=== PATIENT | male | born 1985 | race Caucasian/White ===

== ENCOUNTER 2017-05-26 12:01 | Inpatient (IN) | payer MEDICARE, OTHER ==
[~2017-05-26] VITALS: Ht 165.1 cm; Wt 47.5 kg
[2017-05-26] VITALS (16 sets, daily range): BP systolic 109–149; BP diastolic 69–87; PULSE 116–167; RESP 14–78; TEMP 98.9–99.5; O2SAT 92–100
[~2017-05-26 12:01] MED LIST: CARB0.5D16 EACH EYE; Docusate Sod/Senna PO; LEVE500S TUBE; PROZ20CA11 PO; RISP1 PO
[2017-05-26] MEDS ORDERED: MIDAZOLAM 100 MG/100 ML INJ 100 ML ONE (12:04)
[2017-05-26] MEDS ORDERED: LORazepam 2 MG/ML VIAL ONE (12:07)
[2017-05-26] MEDS ORDERED: PROPOFOL 1000 MG/100 ML INJ 100 ML IV PRN (12:45)
[2017-05-26] MEDS ORDERED: MISCELLANEOUS NURSING INFORMATION XX SCH (12:45)
[2017-05-26] MEDS ORDERED: SUCCINYLCHOLINE CHLORIDE 200 MG/10 ML VIAL IV PUSH ONE (12:45)
[2017-05-26] MEDS ORDERED: BISACODYL 10 MG SUPP RECTAL PRN (12:45)
[2017-05-26] MEDS ORDERED: SENNOSIDES 8.6 MG TAB PO PRN (12:45)
[2017-05-26] MEDS ORDERED: MIDAZOLAM 100 MG/100 ML INJ 100 ML IV PRN (12:45)
[2017-05-26] MEDS ORDERED: LACTULOSE SYRUP 20 GM/30 ML CUP PO PRN (12:45)
[2017-05-26] MEDS ORDERED: MAGNESIUM HYDROXIDE SUSP 30 ML CUP PO PRN (12:45)
[2017-05-26] MEDS ORDERED: LORazepam 2 MG/ML VIAL IV PUSH ONE (12:45)
[2017-05-26] MEDS ORDERED: ETOMIDATE 20 MG/10 ML VIAL IVP ONE (12:45)
[2017-05-26 12:50] LABS: AUTOMATED NEUTROPHIL # 6.9 TH/MM3 (1.8-7.7); BASOPHIL # 0.1 TH/MM3 (0-0.2); BASOPHIL % 0.8 % (0.0-2.0); EOSINOPHIL # 0.4 TH/MM3 (0-0.4); EOSINOPHIL % 3.5 % (0.0-4.0); HEMATOCRIT 44.7 % (39.0-51.0); HEMOGLOBIN 15.1 GM/DL (13.0-17.0); LYMPH % 24.7 % (9.0-44.0); LYMPHOCYTE # 2.6 TH/MM3 (1.0-4.8); MEAN CORPUSCULAR HEMOGLOBIN 28.7 PG (27.0-34.0); MEAN CORPUSCULAR HGB CONC 33.8 % (32.0-36.0); MEAN PLATELET VOLUME 8.8 FL (7.0-11.0); MONO % 4.3 % (0.0-8.0); MONOCYTE # 0.5 TH/MM3 (0-0.9); NEUT % 66.7 % (16.0-70.0); PLATELET COUNT 358 TH/MM3 (150-450); RED BLOOD COUNT 5.26 MIL/MM3 (4.50-5.90); RED CELL DISTRIBUTION WIDTH 13.9 % (11.6-17.2); WHITE BLOOD COUNT 10.4 TH/MM3 (4.0-11.0)
[2017-05-26 12:55] LABS: BACTERIA, URINE OCC /hpf; BILIRUBIN, URINE NEG (NEG); BLOOD, URINE MOD (NEG); GLUCOSE,URINE TRACE mg/dL (NEG); HYALINE CAST, URINE 36 /lpf (RARE); KETONE, URINE 10 mg/dL (NEG); MUCUS URINE MANY /lpf (OCC); NITRITE,URINE NEG (NEG); SQUAMOUS EPITHELIAL CELL URINE 2 /hpf (0-5); URINE COLOR YELLOW (YELLW/STRAW); URINE LEUKOCYTE ESTERASE NEG (NEG)
[2017-05-26] MEDS: MIDAZOLAM 100 MG/100 ML INJ 100 ML IV PRN (12:59)
[2017-05-26] MEDS ORDERED: levETIRAcetam INJ 100 ML IV ONE (13:00)
[2017-05-26 13:02] LABS: PROTHROMBIN TIME - PATIENT 10.3 SEC (9.8-11.6)
[2017-05-26 13:17] LABS: ALKALINE PHOSPHATASE 76 U/L (45-117); ALT (GPT) 16 U/L (12-78); TOTAL BILIRUBIN ADULT 1.9 MG/DL (0.2-1.0)
[2017-05-26 13:18] LABS: LACTIC ACID SEPSIS PROTOCOL 10.2 mmol/L (0.4-2.0)
[2017-05-26] MEDS: FAMOTIDINE 20 MG/2 ML VIAL IV PUSH SCH ×2 (13:21→20:45)
[2017-05-26 13:29] LABS: ALBUMIN 3.9 GM/DL (3.4-5.0); AST (GOT) 18 U/L (15-37); BICARBONATE 16.4 MEQ/L (21.0-32.0); BLOOD UREA NITROGEN 13 MG/DL (7-18); CALCIUM 9.1 MG/DL (8.5-10.1); CHLORIDE 103 MEQ/L (98-107); CREATININE 1.21 MG/DL (0.60-1.30); GLOMERULAR FILTRATION RATE 69 ML/MIN (>89); GLUCOSE,RANDOM 136 MG/DL (74-106); SODIUM (NA) 138 MEQ/L (136-145)
[2017-05-26] MEDS ORDERED: cefTRIAXone INJ 1,000 MG in SODIUM CHLORIDE 0.9% INJ 100 ML IV ONE (14:00)
[2017-05-26] MEDS ORDERED: SODIUM PHOSPHATE INJ 30 MMOL in SODIUM CHLOR 0.9% 250 ML INJ 240 ML IV PRN (14:45)
[2017-05-26] MEDS: INSULIN NovoLIN REGULAR SUPPLEMENTAL SCALE SQ SCH ×3 (14:45→22:45)
[2017-05-26] MEDS ORDERED: POTASSIUM PHOSPHATE MONOBASIC 500 MG TAB PO/TUBE PRN (14:45)
[2017-05-26] MEDS ORDERED: MAGNESIUM SULFATE INJ 4 GM in SODIUM CHLORIDE 0.9% INJ 92 ML IV PRN (14:45)
[2017-05-26] MEDS ORDERED: GLUCAGON 1 MG/ML VIAL OTHER PRN (14:45)
[2017-05-26] MEDS ORDERED: POTASSIUM CHLOR 40 MEQ PREMIX 100 ML IV PRN ×2 (14:45)
[2017-05-26] MEDS ORDERED: DEXTROSE 50% IN WATER 50 ML VIAL(D50) IV PUSH PRN (14:45)
[2017-05-26] MEDS ORDERED: MAGNESIUM SULFATE INJ 2 GM in SODIUM CHLORIDE 0.9% INJ 96 ML IV PRN (14:45)
[2017-05-26] MEDS ORDERED: SODIUM CHLOR 0.9% 1000 ML INJ 1,000 ML IV ONE ×4 (14:45→15:30)
[2017-05-26] MEDS ORDERED: MAGNESIUM OXIDE 400 MG TAB PO PRN (14:45)
[2017-05-26] MEDS ORDERED: POTASSIUM CHLOR 20 MEQ PREMIX 100 ML IV PRN ×2 (14:45)
[2017-05-26] MEDS ORDERED: POTASSIUM CHLORIDE 25 MEQ EFFERVESCENT TAB PO PRN (14:45)
[2017-05-26] MEDS: DEXT 5%-NACL 0.9% 1000 ML INJ 1,000 ML IV SCH (14:45)
--- NOTE | 2017-05-26 14:49 | RADRPT ---
EXAM DATE/TIME: 05/26/2017 14:10 [facility] COMPARISON: CHEST SINGLE AP, May 11, 2014, 5:26. INDICATIONS : Aspiration/intubation MEDICAL HISTORY : none known SURGICAL HISTORY : none known ENCOUNTER: Initial ACUITY: 1 day PAIN SCORE: Non-responsive. LOCATION: Bilateral chest FINDINGS: ETT with tip near the level of the clavicles. NGT coursing down the GE junction. Lungs are clear. Car diomediastinal contours are within normal limits. Bony thorax is intact. CONCLUSION: 1. ETT and NGT, as above. 2. Lungs are clear. Cyrus Lopez MD on May 26, 2017 at 14:42 Board Certified Radiologist. This report was verified electronically.
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
[2017-05-26] MEDS: RESP: ALBUTEROL 2.5 MG/IPRATROPIUM 0.5 MG NEB (SCH) INH ×2 (15:12→20:03)
--- NOTE | 2017-05-26 15:15 | RADRPT ---
EXAM DATE/TIME: 05/26/2017 14:56 [facility] COMPARISON: CT BRAIN W/O CONTRAST, May 07, 2014, 15:02. INDICATIONS : Seizure RADIATION DOSE: 37.72 CTDIvol (mGy) MEDICAL HISTORY : Seizures. Cerebrovascular disease. SURGICAL HISTORY : None. ENCOUNTER: Initial ACUITY: 1 day PAIN SCALE: Non-responsive LOCATION: cranial TECHNIQUE: Multiple contiguous axial images were obtained of the head. Using automated exposure control and adj ustment of the mA and/or kV according to patient size, radiation dose was kept as low as reasonably a chievable to obtain optimal diagnostic quality images. DICOM format image data is available electro nically for review and comparison. FINDINGS: CEREBRUM: The ventricles are normal for age. No evidence of midline shift, mass lesion, hemorrhage or acute in farction. No extra-axial fluid collections are seen. POSTERIOR FOSSA: Mild vermian atrophy is noted. The cerebellum and brainstem are otherwise intact. The 4th ventricle is midline. The cerebellopontine angle is unremarkable. EXTRACRANIAL: The visualized portion of the orbits is intact. SKULL: The calvaria is intact. No evidence of skull fracture. CONCLUSION: No acute disease. Mild cerebellar atrophy; unchanged. Tyler Santizo MD on May 26, 2017 at 15:10 Board Certified Radiologist. This report was verified electronically.
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
[2017-05-26] MEDS: levETIRAcetam INJ 750 MG in SODIUM CHLORIDE 0.9% INJ 100 ML IV SCH (18:00)
[2017-05-26 18:51] LABS: BICARBONATE 24.5 MEQ/L (21.0-32.0); CALCIUM 7.5 MG/DL (8.5-10.1); CREATININE 0.8 MG/DL (0.60-1.30)
[2017-05-26] MEDS: PROPOFOL 1000 MG/100 ML INJ 100 ML IV PRN (19:47)
[2017-05-26] MEDS: DOCUSATE SODIUM 50 MG/SENNA 8.6 MG TAB PO SCH (20:45)
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
--- NOTE | 2017-05-26 23:16 | MG ---
cc: ROSETTA REIS MD Sex: M DATE OF [birth year][address] Davis HISTORY: History of stroke. TBI. Seizure. Depression. Anxiety. Falls. Left-sided weakness. MEDICATIONS: Propofol. Albuterol. DESCRIPTION The patient is on 2 milligrams of Versed. The recording is generally slow and low voltage theta and beta range. There is some beta activity superimposed. There is excessive muscle artifact. Photic stimulation did not elicit driving response. Hyperventilation was not done. There were no epileptiform discharges or electrographic seizures during the recording. INTERPRETATION The EEG shows generalized slowing that may be related to an encephalopathic process secondary to medications, metabolic or hypoxic injury. There were no electrographic seizures or epileptiform discharges. Clinical correlation is recommended. Rosetta Reis MD [facility]/KAYLA /10:07 PM /10:54 PM [facility]
[2017-05-27] VITALS (18 sets, daily range): BP systolic 95–111; BP diastolic 63–80; PULSE 103–143; RESP 22–25; TEMP 98.8–100.8; O2SAT 94–100
[2017-05-27] MEDS: RESP: ALBUTEROL 2.5 MG/IPRATROPIUM 0.5 MG NEB (SCH) INH ×6 (01:10→21:22)
[2017-05-27] MEDS: LORazepam 2 MG/ML VIAL IV PUSH PRN ×2 (01:33→11:29)
[2017-05-27] MEDS: DEXT 5%-NACL 0.9% 1000 ML INJ 1,000 ML IV SCH ×2 (02:26→21:41)
[2017-05-27] MEDS: INSULIN NovoLIN REGULAR SUPPLEMENTAL SCALE SQ SCH ×6 (02:27→21:53)
[2017-05-27] MEDS: METOPROLOL TARTRATE 5 MG/5 ML VIAL IV PUSH PRN ×8 (02:33→18:55)
[2017-05-27 04:36] LABS: AUTOMATED NEUTROPHIL # 8.9 TH/MM3 (1.8-7.7); BASOPHIL % 0.3 % (0.0-2.0); HEMATOCRIT 37.4 % (39.0-51.0); HEMOGLOBIN 12.8 GM/DL (13.0-17.0); LYMPH % 3.5 % (9.0-44.0); LYMPHOCYTE # 0.3 TH/MM3 (1.0-4.8); MEAN CORPUSCULAR HEMOGLOBIN 28.7 PG (27.0-34.0); MEAN CORPUSCULAR HGB CONC 34.2 % (32.0-36.0); MEAN PLATELET VOLUME 8.2 FL (7.0-11.0); MONO % 3.6 % (0.0-8.0); MONOCYTE # 0.3 TH/MM3 (0-0.9); NEUT % 92.6 % (16.0-70.0); PLATELET COUNT 216 TH/MM3 (150-450); RED BLOOD COUNT 4.45 MIL/MM3 (4.50-5.90); RED CELL DISTRIBUTION WIDTH 13.3 % (11.6-17.2); WHITE BLOOD COUNT 9.6 TH/MM3 (4.0-11.0)
[2017-05-27] MEDS: levETIRAcetam INJ 750 MG in SODIUM CHLORIDE 0.9% INJ 100 ML IV SCH ×2 (06:35→17:43)
[2017-05-27 06:49] LABS: ALKALINE PHOSPHATASE 59 U/L (45-117); ALT (GPT) 16 U/L (12-78); AST (GOT) 34 U/L (15-37); BICARBONATE 24.4 MEQ/L (21.0-32.0); BLOOD UREA NITROGEN 8 MG/DL (7-18); CALCIUM 7.6 MG/DL (8.5-10.1); CHLORIDE 106 MEQ/L (98-107); CREATININE 0.63 MG/DL (0.60-1.30); GLOMERULAR FILTRATION RATE 147 ML/MIN (>89); GLUCOSE,RANDOM 106 MG/DL (74-106); MAGNESIUM 1.9 MG/DL (1.5-2.5); PHOSPHORUS 1.9 MG/DL (2.5-4.9); SODIUM (NA) 138 MEQ/L (136-145); TOTAL BILIRUBIN ADULT 2.2 MG/DL (0.2-1.0); TOTAL PROTEIN 6.2 GM/DL (6.4-8.2)
[2017-05-27] MEDS: DOCUSATE SODIUM 50 MG/SENNA 8.6 MG TAB PO SCH ×2 (07:55→21:40)
[2017-05-27] MEDS: FAMOTIDINE 20 MG/2 ML VIAL IV PUSH SCH ×2 (07:56→21:40)
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
[2017-05-27] MEDS: METOPROLOL TARTRATE 25 MG TAB PO SCH ×3 (11:00→22:04)
--- NOTE | 2017-05-27 14:54 | RADRPT ---
EXAM DATE/TIME: 05/27/2017 14:13 [place] COMPARISON: MRI BRAIN W/O CONTRAST, May 10, 2014, 16:55. INDICATIONS : Seizures. MEDICAL HISTORY : None. SURGICAL HISTORY : Rt forearm amputation. ENCOUNTER: Initial ACUITY: 3 day PAIN SCORE: Nonresponsive. LOCATION: head TECHNIQUE: Multiplanar, multisequence MRI of the brain was performed without contrast. FINDINGS: CEREBRUM: The ventricles are normal for age. There is mild gliosis and scarring again noted from prior right ve ntriculostomy.. No evidence of midline shift, mass lesion, hemorrhage or acute infarction. No extraa xial fluid collections are seen. The pituitary gland and suprasellar cistern are normal in configura tion. WHITE MATTER: No significant signal abnormalities are seen in the white matter. POSTERIOR FOSSA: The cerebellum and brainstem are intact. The 4th ventricle is midline. The cerebellopontine angle is unremarkable. The cerebellar tonsils are normal in position. DIFFUSION IMAGING: No focal areas of restricted diffusion are seen. No evidence of acute infarction. EXTRACRANIAL: The visualized portions of the orbits and paranasal sinuses are unremarkable. CONCLUSION: 1. No acute hemorrhage, mass or infarction. 2. Mild gliosis in the right frontal lobe from prior ventriculostomy. Adam Baker MD on May 27, 2017 at 14:49 Board Certified Radiologist. This report was verified electronically.
[2017-05-27] MEDS: PROPOFOL 1000 MG/100 ML INJ 100 ML IV PRN (15:00)
[2017-05-27] MEDS: POTASSIUM PHOSPHATE INJ 30 MMOL in SODIUM CHLOR 0.9% 250 ML INJ 250 ML IV PRN (17:43)
[2017-05-27] MEDS: HEPARIN SODIUM - SQ 10,000 UNITS/ML VIAL SQ SCH (21:40)
[2017-05-27] MEDS: MIDAZOLAM 100 MG/100 ML INJ 100 ML IV PRN (21:57)
[2017-05-28] VITALS (19 sets, daily range): BP systolic 78–100; BP diastolic 51–65; PULSE 104–143; RESP 12–30; TEMP 99.3–101.4; O2SAT 96–100
[2017-05-28] MEDS: RESP: ALBUTEROL 2.5 MG/IPRATROPIUM 0.5 MG NEB (SCH) INH ×7 (01:56→20:06)
[2017-05-28] MEDS: INSULIN NovoLIN REGULAR SUPPLEMENTAL SCALE SQ SCH ×4 (02:45→20:00)
[2017-05-28] MEDS: levETIRAcetam INJ 750 MG in SODIUM CHLORIDE 0.9% INJ 100 ML IV SCH ×2 (05:46→17:17)
[2017-05-28] MEDS: HEPARIN SODIUM - SQ 10,000 UNITS/ML VIAL SQ SCH (07:45)
[2017-05-28] MEDS: FAMOTIDINE 20 MG/2 ML VIAL IV PUSH SCH ×2 (07:46→22:06)
[2017-05-28] MEDS: DOCUSATE SODIUM 50 MG/SENNA 8.6 MG TAB PO SCH ×2 (07:46→22:06)
[2017-05-28] MEDS: METOPROLOL TARTRATE 25 MG TAB PO SCH ×2 (07:46→21:00)
[2017-05-28 08:19] LABS: AUTOMATED NEUTROPHIL # 12.4 TH/MM3 (1.8-7.7); BASOPHIL % 0.2 % (0.0-2.0); HEMATOCRIT 36.6 % (39.0-51.0); HEMOGLOBIN 12.8 GM/DL (13.0-17.0); LYMPH % 4.3 % (9.0-44.0); LYMPHOCYTE # 0.6 TH/MM3 (1.0-4.8); MEAN CELL VOLUME 81.7 FL (80.0-100.0); MEAN CORPUSCULAR HEMOGLOBIN 28.6 PG (27.0-34.0); MEAN PLATELET VOLUME 8.5 FL (7.0-11.0); MONO % 2.3 % (0.0-8.0); MONOCYTE # 0.3 TH/MM3 (0-0.9); NEUT % 93.2 % (16.0-70.0); PLATELET COUNT 188 TH/MM3 (150-450); RED BLOOD COUNT 4.48 MIL/MM3 (4.50-5.90); RED CELL DISTRIBUTION WIDTH 13.7 % (11.6-17.2); WHITE BLOOD COUNT 13.3 TH/MM3 (4.0-11.0)
[2017-05-28 08:37] LABS: BICARBONATE 22.9 MEQ/L (21.0-32.0); CALCIUM 7.6 MG/DL (8.5-10.1); CREATININE 0.58 MG/DL (0.60-1.30); PHOSPHORUS 1.5 MG/DL (2.5-4.9)
[2017-05-28] MEDS: DEXT 5%-NACL 0.9% 1000 ML INJ 1,000 ML IV SCH ×2 (09:08→22:05)
[2017-05-28] MEDS: POTASSIUM PHOSPHATE MONOBASIC 500 MG TAB PO PRN ×2 (09:30→13:30)
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
[2017-05-28] MEDS: METOPROLOL TARTRATE 5 MG/5 ML VIAL IV PUSH PRN ×3 (13:42→13:59)
[2017-05-28] MEDS: ACETAMINOPHEN 325 MG TAB PO PRN ×2 (13:58→22:06)
[2017-05-28] MEDS ORDERED: SODIUM CHLOR 0.9% 1000 ML INJ 1,000 ML IV ONE (14:00)
[2017-05-28] MEDS ORDERED: VANCOMYCIN INJ 1,000 MG in SODIUM CHLOR 0.9% 250 ML INJ 250 ML IV SCH (14:00)
[2017-05-28] MEDS ORDERED: Vancomycin Consult Pharmacy 1 EA OTHER SCH (16:15)
[2017-05-28] MEDS: AZTREONAM INJ 1,000 MG in SODIUM CHLORIDE 0.9% INJ 100 ML IV SCH (17:17)
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
[2017-05-28] MEDS: MIDAZOLAM 100 MG/100 ML INJ 100 ML IV PRN (21:28)
[2017-05-28] MEDS: VANCOMYCIN INJ 850 MG in SODIUM CHLOR 0.9% 250 ML INJ 250 ML IV SCH (22:07)
[2017-05-29] VITALS (19 sets, daily range): BP systolic 88–117; BP diastolic 51–72; PULSE 102–144; RESP 19–42; TEMP 99.5–101; O2SAT 92–100
[2017-05-29] MEDS: AZTREONAM INJ 1,000 MG in SODIUM CHLORIDE 0.9% INJ 100 ML IV SCH ×4 (02:35→21:22)
[2017-05-29] MEDS: DEXT 5%-NACL 0.9% 1000 ML INJ 1,000 ML IV SCH (02:36)
[2017-05-29] MEDS: RESP: ALBUTEROL 2.5 MG/IPRATROPIUM 0.5 MG NEB (SCH) INH ×6 (04:00→20:17)
[2017-05-29] MEDS: INSULIN NovoLIN REGULAR SUPPLEMENTAL SCALE SQ SCH ×7 (04:00→23:34)
[2017-05-29] MEDS: VANCOMYCIN INJ 850 MG in SODIUM CHLOR 0.9% 250 ML INJ 250 ML IV SCH ×3 (04:47→22:57)
[2017-05-29] MEDS: levETIRAcetam INJ 750 MG in SODIUM CHLORIDE 0.9% INJ 100 ML IV SCH ×2 (06:12→18:00)
[2017-05-29 07:52] LABS: AUTOMATED NEUTROPHIL # 8.8 TH/MM3 (1.8-7.7); BASOPHIL % 0.2 % (0.0-2.0); EOSINOPHIL % 0.5 % (0.0-4.0); LYMPH % 4.3 % (9.0-44.0); LYMPHOCYTE # 0.4 TH/MM3 (1.0-4.8); MEAN CELL VOLUME 82.9 FL (80.0-100.0); MEAN CORPUSCULAR HEMOGLOBIN 28.5 PG (27.0-34.0); MEAN CORPUSCULAR HGB CONC 34.4 % (32.0-36.0); MEAN PLATELET VOLUME 8.8 FL (7.0-11.0); MONO % 4.1 % (0.0-8.0); MONOCYTE # 0.4 TH/MM3 (0-0.9); NEUT % 90.9 % (16.0-70.0); PLATELET COUNT 165 TH/MM3 (150-450); RED BLOOD COUNT 4.22 MIL/MM3 (4.50-5.90); RED CELL DISTRIBUTION WIDTH 13.7 % (11.6-17.2); WHITE BLOOD COUNT 9.7 TH/MM3 (4.0-11.0)
[2017-05-29 08:04] LABS: BICARBONATE 23.3 MEQ/L (21.0-32.0); CALCIUM 7.7 MG/DL (8.5-10.1); CREATININE 0.46 MG/DL (0.60-1.30); MAGNESIUM 1.7 MG/DL (1.5-2.5); PHOSPHORUS 1.2 MG/DL (2.5-4.9)
[2017-05-29] MEDS: ACETAMINOPHEN 325 MG TAB PO PRN ×2 (08:42→17:19)
[2017-05-29] MEDS: FAMOTIDINE 20 MG/2 ML VIAL IV PUSH SCH ×2 (08:42→21:24)
[2017-05-29] MEDS: METOPROLOL TARTRATE 25 MG TAB PO SCH ×2 (08:43→21:00)
[2017-05-29] MEDS: DOCUSATE SODIUM 50 MG/SENNA 8.6 MG TAB PO SCH ×2 (09:00→21:00)
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
--- NOTE | 2017-05-29 10:54 | RADRPT ---
EXAM DATE/TIME: 05/29/2017 10:07 [facility] COMPARISON: CHEST SINGLE AP, May 26, 2017, 14:10. INDICATIONS : Short of breath, respiratory failure MEDICAL HISTORY : seizures SURGICAL HISTORY : right arm amputation ENCOUNTER: Subsequent ACUITY: 3 days PAIN SCORE: Non-responsive. LOCATION: Bilateral chest FINDINGS: A single AP portable semierect view of the chest was obtained and demonstrates new patchy airspace di sease in both lung bases right greater than left. There is blunting of the right costophrenic angle n ow noted which is new. The heart size remains within normal limits. Endotracheal tube remains in plac e with the tip approximately 4 cm above the tonie. The nasogastric tube remains in place as well wit h the tip in the stomach. The bony thorax is intact. There is overlying artifact from oxygen tubing e lectrocardiogram leads. Patient is mildly rotated to the left. CONCLUSION: 1. New bibasilar airspace disease right greater than left. This could indicate pneumonia. 2. New blunting of the right costophrenic angle consistent with small effusion. Adam Baker MD on May 29, 2017 at 10:51 Board Certified Radiologist. This report was verified electronically.
[2017-05-29] MEDS: METOPROLOL TARTRATE 5 MG/5 ML VIAL IV PUSH PRN ×3 (11:27→11:37)
[2017-05-29] MEDS ORDERED: PHARMACY ORDERED LAB ONE (13:45)
[2017-05-29] MEDS: POTASSIUM PHOSPHATE MONOBASIC 500 MG TAB PO PRN ×2 (14:07→17:17)
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
[2017-05-29 17:08] LABS: TOTAL PROTEIN,CSF 29.1 MG/DL (15.0-45.0)
[2017-05-29 17:56] LABS: SUPERNATE COLOR TUBE #1 CLEAR (CLEAR); VOLUME TUBE # 1 2.1 ML
[2017-05-29 18:01] LABS: WBC TUBE #1 0 /MM3 (0-10)
[2017-05-29 18:02] LABS: CSF LYMPHOCYTES 0 %; CSF NEUTROPHILS 0 %; RBC TUBE #1 5 /MM3
[2017-05-29 21:23] LABS: BACTERIA, URINE RARE /hpf; BILIRUBIN, URINE NEG (NEG); BLOOD, URINE TRACE (NEG); GLUCOSE,URINE NEG (NEG); KETONE, URINE NEG (NEG); MUCUS URINE FEW /lpf (OCC); NITRITE,URINE NEG (NEG); SQUAMOUS EPITHELIAL CELL URINE <1 /hpf (0-5); URINE COLOR YELLOW (YELLW/STRAW); URINE LEUKOCYTE ESTERASE NEG (NEG)
[2017-05-30] VITALS (40 sets, daily range): BP systolic 92–120; BP diastolic 56–75; PULSE 102–135; RESP 10–22; TEMP 98.4–101.9; O2SAT 94–100
[2017-05-30] MEDS: RESP: ALBUTEROL 2.5 MG/IPRATROPIUM 0.5 MG NEB (SCH) INH ×5 (00:15→14:23)
[2017-05-30 02:55] LABS: AUTOMATED NEUTROPHIL # 7.4 TH/MM3 (1.8-7.7); BASOPHIL % 0.2 % (0.0-2.0); EOSINOPHIL # 0.2 TH/MM3 (0-0.4); EOSINOPHIL % 2.7 % (0.0-4.0); HEMATOCRIT 32.9 % (39.0-51.0); HEMOGLOBIN 11.3 GM/DL (13.0-17.0); LYMPH % 6.1 % (9.0-44.0); LYMPHOCYTE # 0.5 TH/MM3 (1.0-4.8); MEAN CORPUSCULAR HEMOGLOBIN 28.4 PG (27.0-34.0); MEAN CORPUSCULAR HGB CONC 34.2 % (32.0-36.0); MEAN PLATELET VOLUME 8.3 FL (7.0-11.0); MONO % 6.7 % (0.0-8.0); MONOCYTE # 0.6 TH/MM3 (0-0.9); NEUT % 84.3 % (16.0-70.0); PLATELET COUNT 183 TH/MM3 (150-450); RED BLOOD COUNT 3.97 MIL/MM3 (4.50-5.90); RED CELL DISTRIBUTION WIDTH 13.7 % (11.6-17.2); WHITE BLOOD COUNT 8.8 TH/MM3 (4.0-11.0)
[2017-05-30 03:14] LABS: BICARBONATE 24.2 MEQ/L (21.0-32.0); CALCIUM 7.4 MG/DL (8.5-10.1); CREATININE 0.4 MG/DL (0.60-1.30); PHOSPHORUS 3.1 MG/DL (2.5-4.9)
[2017-05-30 03:45] LABS: CALCIUM-PROTEIN CORRECTED 8.2 MG/DL (8.5-10.1); TOTAL PROTEIN 5.7 GM/DL (6.4-8.2)
[2017-05-30] MEDS: INSULIN NovoLIN REGULAR SUPPLEMENTAL SCALE SQ SCH ×6 (04:00→23:38)
[2017-05-30] MEDS: ACETAMINOPHEN 325 MG TAB PO PRN ×3 (04:43→17:41)
[2017-05-30] MEDS: levETIRAcetam INJ 750 MG in SODIUM CHLORIDE 0.9% INJ 100 ML IV SCH ×2 (05:07→17:42)
[2017-05-30] MEDS: AZTREONAM INJ 1,000 MG in SODIUM CHLORIDE 0.9% INJ 100 ML IV SCH ×2 (05:07→15:50)
[2017-05-30] MEDS: VANCOMYCIN INJ 850 MG in SODIUM CHLOR 0.9% 250 ML INJ 250 ML IV SCH ×2 (05:54→14:14)
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
[2017-05-30] MEDS: FAMOTIDINE 20 MG/2 ML VIAL IV PUSH SCH ×2 (10:44→21:18)
[2017-05-30] MEDS: DOCUSATE SODIUM 50 MG/SENNA 8.6 MG TAB PO SCH ×2 (10:44→21:00)
[2017-05-30] MEDS: METOPROLOL TARTRATE 25 MG TAB PO SCH ×2 (10:44→21:00)
[2017-05-30] MEDS ORDERED: PHARMACY ORDERED LAB ONE (13:45)
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
[2017-05-30] MEDS ORDERED: POTASSIUM CHLORIDE 20 MEQ PWD PACKET NG ONE (17:45)
[2017-05-30] MEDS: VANCOMYCIN INJ 900 MG in SODIUM CHLOR 0.9% 250 ML INJ 250 ML IV SCH (21:18)
[2017-05-31] VITALS (18 sets, daily range): BP systolic 97–152; BP diastolic 56–73; PULSE 74–124; RESP 13–23; TEMP 96.9–100.8; O2SAT 94–100
[2017-05-31] MEDS: INSULIN NovoLIN REGULAR SUPPLEMENTAL SCALE SQ SCH (04:00)
[2017-05-31] MEDS: levETIRAcetam INJ 750 MG in SODIUM CHLORIDE 0.9% INJ 100 ML IV SCH ×2 (05:10→17:50)
[2017-05-31] MEDS: VANCOMYCIN INJ 900 MG in SODIUM CHLOR 0.9% 250 ML INJ 250 ML IV SCH (05:11)
[2017-05-31] MEDS ORDERED: diphenhydrAMINE HCL 50 MG/ML VIAL ONE (05:22)
[2017-05-31 05:29] LABS: AUTOMATED NEUTROPHIL # 5.3 TH/MM3 (1.8-7.7); BASOPHIL % 0.3 % (0.0-2.0); EOSINOPHIL # 0.4 TH/MM3 (0-0.4); EOSINOPHIL % 5.7 % (0.0-4.0); HEMATOCRIT 29.7 % (39.0-51.0); HEMOGLOBIN 10.1 GM/DL (13.0-17.0); LYMPH % 7.1 % (9.0-44.0); LYMPHOCYTE # 0.5 TH/MM3 (1.0-4.8); MEAN CELL VOLUME 82.7 FL (80.0-100.0); MEAN CORPUSCULAR HEMOGLOBIN 27.9 PG (27.0-34.0); MEAN CORPUSCULAR HGB CONC 33.8 % (32.0-36.0); MEAN PLATELET VOLUME 8.3 FL (7.0-11.0); MONO % 10.9 % (0.0-8.0); MONOCYTE # 0.8 TH/MM3 (0-0.9); PLATELET COUNT 209 TH/MM3 (150-450); RED CELL DISTRIBUTION WIDTH 13.6 % (11.6-17.2); WHITE BLOOD COUNT 6.9 TH/MM3 (4.0-11.0)
[2017-05-31] MEDS ORDERED: diphenhydrAMINE HCL 50 MG/ML VIAL IV ONE (05:45)
[2017-05-31 05:51] LABS: CALCIUM 7.8 MG/DL (8.5-10.1); CREATININE 0.38 MG/DL (0.60-1.30)
[2017-05-31] MEDS ORDERED: ACETAMINOPHEN 650 MG/20.3 ML UDC NG PRN (07:00)
[2017-05-31] MEDS: diphenhydrAMINE HCL 50 MG/ML VIAL IV PUSH SCH ×3 (07:00→19:20)
[2017-05-31] MEDS ORDERED: RESP: ALBUTEROL 2.5 MG/3 ML NEB (PRN) NEB (07:15)
[2017-05-31] MEDS ORDERED: methylPREDNISolone SOD SUCC 125 MG/2 ML VIAL IV PUSH ONE (07:15)
[2017-05-31] MEDS ORDERED: DEXAMETHASONE SOD PHOS 4 MG/ML VIAL IV PUSH ONE (07:15)
[2017-05-31] MEDS ORDERED: POTASSIUM CHLORIDE 20 MEQ PWD PACKET PO ONE (07:30)
[2017-05-31] MEDS ORDERED: MAGNESIUM SULFATE 1 GM PREMIX 100 ML IV ONE (07:30)
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
[2017-05-31] MEDS: RESP: ALBUTEROL 2.5 MG/IPRATROPIUM 0.5 MG NEB (SCH) NEB ×3 (07:55→20:15)
[2017-05-31] MEDS: RESP: SODIUM CHLORIDE 3% 4 ML NEB NEB SCH ×3 (08:03→20:15)
[2017-05-31] MEDS: FAMOTIDINE 20 MG/2 ML VIAL IV PUSH SCH ×2 (08:09→21:15)
[2017-05-31] MEDS: LINEZOLID 600 MG PREMIX 300 ML IV SCH ×2 (08:10→21:14)
[2017-05-31] MEDS: ENOXAPARIN SODIUM 40 MG/0.4 ML SYRINGE SQ SCH (08:10)
[2017-05-31] MEDS: METOPROLOL TARTRATE 25 MG TAB PO SCH ×2 (09:00→21:16)
[2017-05-31] MEDS: DOCUSATE SODIUM 50 MG/SENNA 8.6 MG TAB PO SCH ×2 (09:00→21:15)
[2017-05-31] MEDS: ARTIFICIAL TEARS OPTH SOLN 15 ML BTL EACH EYE SCH ×3 (09:00→17:50)
[2017-05-31] MEDS ORDERED: POLYETHYLENE GLYCOL 17 GM PKG PO SCH (09:00)
[2017-05-31] MEDS ORDERED: LACTULOSE SYRUP 20 GM/30 ML CUP PO ONE (09:30)
[2017-05-31] MEDS ORDERED: GLYCERIN ADULT 2 GM SUPP RECTAL ONE (09:30)
--- NOTE | 2017-05-31 12:10 | RADRPT ---
EXAM DATE/TIME: 05/31/2017 11:37 [facility] COMPARISON: No previous studies available for comparison. INDICATIONS : Constipation MEDICAL HISTORY : None. SURGICAL HISTORY : None. ENCOUNTER: Initial ACUITY: 1 day PAIN SCORE: Non-responsive. LOCATION: Bilateral abdomen FINDINGS: Single AP supine view the abdomen. Nasogastric tube is in place with tip in the region of the distal stomach. Moderate amount of stool scattered throughout colon. Osseous structures within normal limits . No abnormal abdominal calcification. CONCLUSION: Prominent amount of stool in the colon. Nasogastric tube in place. Gerard Maza MD on May 31, 2017 at 12:07 Board Certified Radiologist. This report was verified electronically.
[2017-05-31] MEDS: guaiFENesin SOLUTION 200 MG/10 ML CUP PO SCH ×2 (14:38→21:14)
[2017-05-31] MEDS: METOCLOPRAMIDE HCL 10 MG/2 ML VIAL IV PUSH SCH ×2 (14:39→21:15)
[2017-05-31] MEDS: MIDAZOLAM 100 MG/100 ML INJ 100 ML IV PRN (14:56)
[2017-05-31] MEDS: POLYETHYLENE GLYCOL 17 GM PKG PO SCH (21:00)
[2017-05-31] MEDS: DEXAMETHASONE SOD PHOS 4 MG/ML VIAL IV PUSH SCH (21:15)
[2017-06-01] VITALS (19 sets, daily range): BP systolic 97–108; BP diastolic 66–74; PULSE 70–97; RESP 15–23; TEMP 97.1–97.9; O2SAT 94–100
[2017-06-01] MEDS: MIDAZOLAM 100 MG/100 ML INJ 100 ML IV PRN ×3 (00:53→23:13)
[2017-06-01] MEDS: diphenhydrAMINE HCL 50 MG/ML VIAL IV PUSH SCH ×4 (00:54→18:05)
[2017-06-01] MEDS: RESP: ALBUTEROL 2.5 MG/IPRATROPIUM 0.5 MG NEB (SCH) NEB ×4 (03:25→20:43)
[2017-06-01] MEDS: RESP: SODIUM CHLORIDE 3% 4 ML NEB NEB SCH ×4 (03:25→20:43)
--- NOTE | 2017-06-01 04:48 | RADRPT ---
EXAM DATE/TIME: 06/01/2017 03:45 [facility] COMPARISON: CHEST SINGLE AP, May 29, 2017, 10:07. INDICATIONS : Shortness of breath, possible pulmonary disease. MEDICAL HISTORY : None. SURGICAL HISTORY : None. ENCOUNTER: Subsequent ACUITY: 4 - 6 days PAIN SCORE: Non-responsive. LOCATION: Bilateral chest FINDINGS: The support devices remain in place. There is no pneumothorax. There continues to be bibasilar infilt rates which are mildly improved compared to the prior study. No definite new infiltrates are seen. No significant pleural effusions. CONCLUSION: Improving bibasilar infiltrates. Mat Blanco MD on June 01, 2017 at 4:45 Board Certified Radiologist. This report was verified electronically.
[2017-06-01] MEDS ORDERED: PHARMACY ORDERED LAB ONE (05:45)
[2017-06-01 06:05] LABS: AUTOMATED NEUTROPHIL # 3.7 TH/MM3 (1.8-7.7); HEMATOCRIT 34.1 % (39.0-51.0); HEMOGLOBIN 11.7 GM/DL (13.0-17.0); LYMPH % 8.3 % (9.0-44.0); LYMPHOCYTE # 0.4 TH/MM3 (1.0-4.8); MEAN CELL VOLUME 82.7 FL (80.0-100.0); MEAN CORPUSCULAR HEMOGLOBIN 28.3 PG (27.0-34.0); MEAN CORPUSCULAR HGB CONC 34.2 % (32.0-36.0); MEAN PLATELET VOLUME 8.3 FL (7.0-11.0); MONO % 6.8 % (0.0-8.0); MONOCYTE # 0.3 TH/MM3 (0-0.9); NEUT % 84.9 % (16.0-70.0); PLATELET COUNT 238 TH/MM3 (150-450); RED BLOOD COUNT 4.12 MIL/MM3 (4.50-5.90); RED CELL DISTRIBUTION WIDTH 13.8 % (11.6-17.2); WHITE BLOOD COUNT 4.3 TH/MM3 (4.0-11.0)
[2017-06-01] MEDS: guaiFENesin SOLUTION 200 MG/10 ML CUP PO SCH ×3 (06:13→20:38)
[2017-06-01] MEDS: METOCLOPRAMIDE HCL 10 MG/2 ML VIAL IV PUSH SCH ×3 (06:13→20:38)
[2017-06-01] MEDS: levETIRAcetam INJ 750 MG in SODIUM CHLORIDE 0.9% INJ 100 ML IV SCH ×2 (06:17→18:06)
[2017-06-01 06:19] LABS: ALBUMIN 2.1 GM/DL (3.4-5.0); AST (GOT) 41 U/L (15-37); BICARBONATE 26.4 MEQ/L (21.0-32.0); BLOOD UREA NITROGEN 11 MG/DL (7-18); CALCIUM 8.4 MG/DL (8.5-10.1); CHLORIDE 102 MEQ/L (98-107); CREATININE 0.43 MG/DL (0.60-1.30); GLOMERULAR FILTRATION RATE 228 ML/MIN (>89); GLUCOSE,RANDOM 137 MG/DL (74-106); MAGNESIUM 2.2 MG/DL (1.5-2.5); SODIUM (NA) 137 MEQ/L (136-145)
[2017-06-01 06:20] LABS: ALT (GPT) 53 U/L (12-78)
[2017-06-01 06:23] LABS: ALKALINE PHOSPHATASE 74 U/L (45-117); PHOSPHORUS 3.3 MG/DL (2.5-4.9); TOTAL BILIRUBIN ADULT 0.4 MG/DL (0.2-1.0); TOTAL PROTEIN 6.5 GM/DL (6.4-8.2)
[2017-06-01] MEDS: LINEZOLID 600 MG PREMIX 300 ML IV SCH ×2 (08:28→20:40)
[2017-06-01] MEDS: DEXAMETHASONE SOD PHOS 4 MG/ML VIAL IV PUSH SCH ×2 (08:29→20:39)
[2017-06-01] MEDS: FAMOTIDINE 20 MG/2 ML VIAL IV PUSH SCH ×2 (08:29→20:39)
[2017-06-01] MEDS: LACTULOSE SYRUP 20 GM/30 ML CUP PO SCH (08:29)
[2017-06-01] MEDS: ARTIFICIAL TEARS OPTH SOLN 15 ML BTL EACH EYE SCH ×3 (08:29→18:06)
[2017-06-01] MEDS: POLYETHYLENE GLYCOL 17 GM PKG PO SCH ×2 (08:30→20:40)
[2017-06-01] MEDS: DOCUSATE SODIUM 50 MG/SENNA 8.6 MG TAB PO SCH ×2 (08:30→20:39)
[2017-06-01] MEDS: ENOXAPARIN SODIUM 40 MG/0.4 ML SYRINGE SQ SCH (08:31)
[2017-06-01] MEDS: METOPROLOL TARTRATE 25 MG TAB PO SCH ×2 (08:32→20:39)
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
[2017-06-01 16:43] LABS: CSF CRYPTOCOCCUS AG CONF ND (NOT DETECTD)
[2017-06-02] VITALS (13 sets, daily range): BP systolic 90–107; BP diastolic 55–64; PULSE 91–113; RESP 13–23; TEMP 97.9–99.5; O2SAT 93–99
[2017-06-02] MEDS: diphenhydrAMINE HCL 50 MG/ML VIAL IV PUSH SCH (00:22)
[2017-06-02] MEDS: RESP: SODIUM CHLORIDE 3% 4 ML NEB NEB SCH ×4 (04:18→20:36)
[2017-06-02] MEDS: RESP: ALBUTEROL 2.5 MG/IPRATROPIUM 0.5 MG NEB (SCH) NEB ×4 (04:20→20:36)
--- NOTE | 2017-06-02 04:52 | RADRPT ---
EXAM DATE/TIME: 06/02/2017 03:35 [facility] COMPARISON: CHEST SINGLE AP, June 01, 2017, 3:45. INDICATIONS : Shortness of breath, possible pulmonary disease. MEDICAL HISTORY : None. SURGICAL HISTORY : None. ENCOUNTER: Subsequent ACUITY: 1 week PAIN SCORE: Non-responsive. LOCATION: Bilateral chest FINDINGS: ET tube and NG tube are well placed. The heart size is normal. There is increased density at the base s bilaterally being more prominent on the right. CONCLUSION: Bibasilar medial base mild consolidation or atelectasis. Celestine Hernández MD on June 02, 2017 at 4:48 Board Certified Radiologist. This report was verified electronically.
[2017-06-02] MEDS: guaiFENesin SOLUTION 200 MG/10 ML CUP PO SCH ×3 (05:17→20:51)
[2017-06-02] MEDS: levETIRAcetam INJ 750 MG in SODIUM CHLORIDE 0.9% INJ 100 ML IV SCH ×2 (05:17→17:08)
[2017-06-02] MEDS: METOCLOPRAMIDE HCL 10 MG/2 ML VIAL IV PUSH SCH ×3 (05:17→20:51)
[2017-06-02] MEDS: METOPROLOL TARTRATE 5 MG/5 ML VIAL IV PUSH PRN (05:17)
[2017-06-02 06:54] LABS: AUTOMATED NEUTROPHIL # 5.3 TH/MM3 (1.8-7.7); EOSINOPHIL % 0.2 % (0.0-4.0); HEMATOCRIT 32.7 % (39.0-51.0); HEMOGLOBIN 11.2 GM/DL (13.0-17.0); LYMPH % 13.9 % (9.0-44.0); MEAN CELL VOLUME 82.8 FL (80.0-100.0); MEAN CORPUSCULAR HEMOGLOBIN 28.5 PG (27.0-34.0); MEAN CORPUSCULAR HGB CONC 34.4 % (32.0-36.0); MEAN PLATELET VOLUME 8.4 FL (7.0-11.0); MONOCYTE # 0.9 TH/MM3 (0-0.9); NEUT % 73.9 % (16.0-70.0); PLATELET COUNT 356 TH/MM3 (150-450); RED BLOOD COUNT 3.94 MIL/MM3 (4.50-5.90); RED CELL DISTRIBUTION WIDTH 13.2 % (11.6-17.2); WHITE BLOOD COUNT 7.2 TH/MM3 (4.0-11.0)
[2017-06-02 06:59] LABS: BICARBONATE 30.4 MEQ/L (21.0-32.0); CALCIUM 8.3 MG/DL (8.5-10.1); CREATININE 0.45 MG/DL (0.60-1.30); PHOSPHORUS 2.2 MG/DL (2.5-4.9)
[2017-06-02] MEDS: DOCUSATE SODIUM 50 MG/SENNA 8.6 MG TAB PO SCH ×2 (09:00→20:52)
[2017-06-02] MEDS: LINEZOLID 600 MG PREMIX 300 ML IV SCH ×2 (09:00→20:51)
[2017-06-02] MEDS: DEXAMETHASONE SOD PHOS 4 MG/ML VIAL IV PUSH SCH ×2 (09:00→20:51)
[2017-06-02] MEDS: ENOXAPARIN SODIUM 40 MG/0.4 ML SYRINGE SQ SCH (09:00)
[2017-06-02] MEDS: METOPROLOL TARTRATE 25 MG TAB PO SCH ×2 (09:00→20:52)
[2017-06-02] MEDS: LACTULOSE SYRUP 20 GM/30 ML CUP PO SCH (09:01)
[2017-06-02] MEDS: ARTIFICIAL TEARS OPTH SOLN 15 ML BTL EACH EYE SCH ×3 (09:01→17:08)
[2017-06-02] MEDS: FAMOTIDINE 20 MG/2 ML VIAL IV PUSH SCH ×2 (09:01→20:51)
[2017-06-02] MEDS: POLYETHYLENE GLYCOL 17 GM PKG PO SCH ×2 (09:01→20:52)
[2017-06-02] MEDS: MIDAZOLAM 100 MG/100 ML INJ 100 ML IV PRN (09:16)
[2017-06-02] MEDS: POTASSIUM PHOSPHATE INJ 30 MMOL in SODIUM CHLOR 0.9% 250 ML INJ 250 ML IV PRN (10:31)
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
[2017-06-02 22:43] LABS: PHOSPHORUS 3.6 MG/DL (2.5-4.9)
[2017-06-03] VITALS (16 sets, daily range): BP systolic 95–116; BP diastolic 58–72; PULSE 109–121; RESP 14–26; TEMP 98–99.5; O2SAT 93–99
[2017-06-03] MEDS: MIDAZOLAM 100 MG/100 ML INJ 100 ML IV PRN (01:02)
[2017-06-03] MEDS: RESP: SODIUM CHLORIDE 3% 4 ML NEB NEB SCH ×4 (03:25→19:21)
[2017-06-03] MEDS: RESP: ALBUTEROL 2.5 MG/IPRATROPIUM 0.5 MG NEB (SCH) NEB ×4 (03:25→19:20)
[2017-06-03] MEDS: METOPROLOL TARTRATE 5 MG/5 ML VIAL IV PUSH PRN ×2 (03:48→22:15)
[2017-06-03] MEDS: levETIRAcetam INJ 750 MG in SODIUM CHLORIDE 0.9% INJ 100 ML IV SCH ×2 (05:57→18:18)
[2017-06-03] MEDS: guaiFENesin SOLUTION 200 MG/10 ML CUP PO SCH ×3 (05:57→21:30)
[2017-06-03] MEDS: METOCLOPRAMIDE HCL 10 MG/2 ML VIAL IV PUSH SCH ×3 (05:57→21:30)
[2017-06-03] MEDS: METOPROLOL TARTRATE 25 MG TAB PO SCH ×2 (07:47→23:51)
[2017-06-03] MEDS: FAMOTIDINE 20 MG/2 ML VIAL IV PUSH SCH ×2 (07:48→21:29)
[2017-06-03] MEDS: DEXAMETHASONE SOD PHOS 4 MG/ML VIAL IV PUSH SCH ×2 (07:48→21:29)
[2017-06-03] MEDS: POLYETHYLENE GLYCOL 17 GM PKG PO SCH ×2 (07:48→21:28)
[2017-06-03] MEDS: ENOXAPARIN SODIUM 40 MG/0.4 ML SYRINGE SQ SCH (07:48)
[2017-06-03] MEDS: LACTULOSE SYRUP 20 GM/30 ML CUP PO SCH (07:48)
[2017-06-03] MEDS: DOCUSATE SODIUM 50 MG/SENNA 8.6 MG TAB PO SCH ×2 (07:48→21:29)
[2017-06-03] MEDS: LINEZOLID 600 MG PREMIX 300 ML IV SCH ×2 (07:48→21:28)
[2017-06-03] MEDS: ARTIFICIAL TEARS OPTH SOLN 15 ML BTL EACH EYE SCH ×3 (07:50→18:18)
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
[2017-06-03 10:07] LABS: AUTOMATED NEUTROPHIL # 11.6 TH/MM3 (1.8-7.7); EOSINOPHIL # 0.1 TH/MM3 (0-0.4); EOSINOPHIL % 0.7 % (0.0-4.0); HEMATOCRIT 31.4 % (39.0-51.0); HEMOGLOBIN 10.7 GM/DL (13.0-17.0); LYMPH % 4.8 % (9.0-44.0); LYMPHOCYTE # 0.6 TH/MM3 (1.0-4.8); MEAN CELL VOLUME 83.3 FL (80.0-100.0); MEAN CORPUSCULAR HEMOGLOBIN 28.3 PG (27.0-34.0); MEAN PLATELET VOLUME 7.7 FL (7.0-11.0); MONOCYTE # 0.4 TH/MM3 (0-0.9); NEUT % 91.5 % (16.0-70.0); PLATELET COUNT 347 TH/MM3 (150-450); RED BLOOD COUNT 3.77 MIL/MM3 (4.50-5.90); RED CELL DISTRIBUTION WIDTH 13.3 % (11.6-17.2); WHITE BLOOD COUNT 12.7 TH/MM3 (4.0-11.0)
[2017-06-03 10:22] LABS: ALBUMIN 2.3 GM/DL (3.4-5.0); AST (GOT) 24 U/L (15-37); BICARBONATE 26.4 MEQ/L (21.0-32.0); BLOOD UREA NITROGEN 7 MG/DL (7-18); CALCIUM 8.3 MG/DL (8.5-10.1); CHLORIDE 102 MEQ/L (98-107); CREATININE 0.44 MG/DL (0.60-1.30); GLOMERULAR FILTRATION RATE 222 ML/MIN (>89); GLUCOSE,RANDOM 146 MG/DL (74-106); MAGNESIUM 2.1 MG/DL (1.5-2.5); SODIUM (NA) 137 MEQ/L (136-145)
[2017-06-03 10:25] LABS: ALKALINE PHOSPHATASE 58 U/L (45-117); ALT (GPT) 65 U/L (12-78); PHOSPHORUS 3.4 MG/DL (2.5-4.9); TOTAL BILIRUBIN ADULT 0.5 MG/DL (0.2-1.0); TOTAL PROTEIN 6.3 GM/DL (6.4-8.2)
[2017-06-03 17:53] LABS: CSF CRYPTOCOCCUS ANTIGEN NOT DETECTED (NEGATIVE)
[2017-06-04] VITALS (28 sets, daily range): BP systolic 95–117; BP diastolic 55–68; PULSE 85–120; RESP 16–97; TEMP 98.2–99.3; O2SAT 87–100
[2017-06-04] MEDS: MIDAZOLAM 100 MG/100 ML INJ 100 ML IV PRN (02:44)
[2017-06-04] MEDS: RESP: ALBUTEROL 2.5 MG/IPRATROPIUM 0.5 MG NEB (SCH) NEB ×2 (03:51→07:53)
[2017-06-04] MEDS: RESP: SODIUM CHLORIDE 3% 4 ML NEB NEB SCH ×3 (03:51→20:07)
[2017-06-04] MEDS: METOCLOPRAMIDE HCL 10 MG/2 ML VIAL IV PUSH SCH ×3 (06:06→19:59)
[2017-06-04] MEDS: levETIRAcetam INJ 750 MG in SODIUM CHLORIDE 0.9% INJ 100 ML IV SCH ×2 (06:06→18:00)
[2017-06-04] MEDS: guaiFENesin SOLUTION 200 MG/10 ML CUP PO SCH ×3 (06:06→19:58)
[2017-06-04] MEDS: DOCUSATE SODIUM 50 MG/SENNA 8.6 MG TAB PO SCH ×2 (08:24→19:59)
[2017-06-04] MEDS: METOPROLOL TARTRATE 25 MG TAB PO SCH ×3 (08:24→20:23)
[2017-06-04] MEDS: LACTULOSE SYRUP 20 GM/30 ML CUP PO SCH (08:24)
[2017-06-04] MEDS: POLYETHYLENE GLYCOL 17 GM PKG PO SCH ×2 (08:24→20:03)
[2017-06-04] MEDS: LINEZOLID 600 MG PREMIX 300 ML IV SCH ×2 (08:25→20:00)
[2017-06-04] MEDS: FAMOTIDINE 20 MG/2 ML VIAL IV PUSH SCH ×2 (08:25→19:59)
[2017-06-04] MEDS: DEXAMETHASONE SOD PHOS 4 MG/ML VIAL IV PUSH SCH ×2 (08:25→19:59)
[2017-06-04] MEDS: ENOXAPARIN SODIUM 40 MG/0.4 ML SYRINGE SQ SCH (08:26)
[2017-06-04] MEDS: ARTIFICIAL TEARS OPTH SOLN 15 ML BTL EACH EYE SCH ×3 (08:27→18:00)
[2017-06-04 08:46] LABS: AUTOMATED NEUTROPHIL # 10.4 TH/MM3 (1.8-7.7); BASOPHIL % 0.1 % (0.0-2.0); EOSINOPHIL % 0.2 % (0.0-4.0); HEMATOCRIT 30.2 % (39.0-51.0); HEMOGLOBIN 10.2 GM/DL (13.0-17.0); LYMPH % 8.3 % (9.0-44.0); MEAN CELL VOLUME 82.4 FL (80.0-100.0); MEAN CORPUSCULAR HEMOGLOBIN 27.9 PG (27.0-34.0); MEAN CORPUSCULAR HGB CONC 33.8 % (32.0-36.0); MEAN PLATELET VOLUME 7.6 FL (7.0-11.0); MONO % 4.8 % (0.0-8.0); MONOCYTE # 0.6 TH/MM3 (0-0.9); NEUT % 86.6 % (16.0-70.0); PLATELET COUNT 381 TH/MM3 (150-450); RED BLOOD COUNT 3.66 MIL/MM3 (4.50-5.90); RED CELL DISTRIBUTION WIDTH 13.3 % (11.6-17.2)
[2017-06-04 09:09] LABS: ALBUMIN 2.3 GM/DL (3.4-5.0); BICARBONATE 27.8 MEQ/L (21.0-32.0); BLOOD UREA NITROGEN 7 MG/DL (7-18); CALCIUM 8.6 MG/DL (8.5-10.1); CHLORIDE 101 MEQ/L (98-107); CREATININE 0.45 MG/DL (0.60-1.30); GLOMERULAR FILTRATION RATE 216 ML/MIN (>89); GLUCOSE,RANDOM 120 MG/DL (74-106); SODIUM (NA) 135 MEQ/L (136-145)
[2017-06-04 09:11] LABS: AST (GOT) 17 U/L (15-37)
[2017-06-04 09:13] LABS: ALKALINE PHOSPHATASE 61 U/L (45-117); ALT (GPT) 64 U/L (12-78); TOTAL BILIRUBIN ADULT 0.4 MG/DL (0.2-1.0); TOTAL PROTEIN 6.3 GM/DL (6.4-8.2)
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
[2017-06-05] VITALS (26 sets, daily range): BP systolic 85–120; BP diastolic 55–75; PULSE 86–115; RESP 21–80; TEMP 97.8–98.8; O2SAT 93–99
[2017-06-05] MEDS: RESP: SODIUM CHLORIDE 3% 4 ML NEB NEB SCH ×3 (04:00→20:57)
[2017-06-05] MEDS: guaiFENesin SOLUTION 200 MG/10 ML CUP PO SCH ×2 (06:00→14:13)
[2017-06-05] MEDS: METOCLOPRAMIDE HCL 10 MG/2 ML VIAL IV PUSH SCH (06:22)
[2017-06-05] MEDS: levETIRAcetam INJ 750 MG in SODIUM CHLORIDE 0.9% INJ 100 ML IV SCH ×2 (06:22→18:54)
[2017-06-05] MEDS: METOPROLOL TARTRATE 25 MG TAB PO SCH (09:00)
[2017-06-05] MEDS: DOCUSATE SODIUM 50 MG/SENNA 8.6 MG TAB PO SCH (09:00)
[2017-06-05] MEDS: LACTULOSE SYRUP 20 GM/30 ML CUP PO SCH (09:00)
[2017-06-05] MEDS: POLYETHYLENE GLYCOL 17 GM PKG PO SCH (09:00)
[2017-06-05] MEDS: ENOXAPARIN SODIUM 40 MG/0.4 ML SYRINGE SQ SCH (09:14)
[2017-06-05] MEDS: ARTIFICIAL TEARS OPTH SOLN 15 ML BTL EACH EYE SCH ×3 (09:14→18:54)
[2017-06-05] MEDS: DEXAMETHASONE SOD PHOS 4 MG/ML VIAL IV PUSH SCH (09:14)
[2017-06-05] MEDS: LINEZOLID 600 MG PREMIX 300 ML IV SCH (09:14)
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
[2017-06-05] MEDS: FAMOTIDINE 20 MG/2 ML VIAL IV PUSH SCH (12:58)
[2017-06-05 14:32] LABS: AUTOMATED NEUTROPHIL # 11.1 TH/MM3 (1.8-7.7); BASOPHIL % 0.2 % (0.0-2.0); EOSINOPHIL % 0.2 % (0.0-4.0); HEMATOCRIT 36.8 % (39.0-51.0); HEMOGLOBIN 12.7 GM/DL (13.0-17.0); LYMPH % 6.8 % (9.0-44.0); LYMPHOCYTE # 0.8 TH/MM3 (1.0-4.8); MEAN CELL VOLUME 82.7 FL (80.0-100.0); MEAN CORPUSCULAR HEMOGLOBIN 28.5 PG (27.0-34.0); MEAN CORPUSCULAR HGB CONC 34.5 % (32.0-36.0); MEAN PLATELET VOLUME 7.8 FL (7.0-11.0); MONO % 2.5 % (0.0-8.0); MONOCYTE # 0.3 TH/MM3 (0-0.9); NEUT % 90.3 % (16.0-70.0); PLATELET COUNT 532 TH/MM3 (150-450); RED BLOOD COUNT 4.44 MIL/MM3 (4.50-5.90); RED CELL DISTRIBUTION WIDTH 13.2 % (11.6-17.2); WHITE BLOOD COUNT 12.3 TH/MM3 (4.0-11.0)
[2017-06-05 14:48] LABS: BICARBONATE 28.3 MEQ/L (21.0-32.0); CALCIUM 8.3 MG/DL (8.5-10.1); CREATININE 0.45 MG/DL (0.60-1.30); MAGNESIUM 2.3 MG/DL (1.5-2.5); PHOSPHORUS 3.4 MG/DL (2.5-4.9)
[2017-06-05 15:19] LABS: BANDS 5 % (0-6); LYMPHOCYTES 7 % (9-44); METAMYELOCYTES 2 % (0-1); MONOCYTES 3 % (0-8); NEUTROPHIL # MANUAL DIFF 11.1 TH/MM3 (1.8-7.7); POLYS (SEG NEUTROPHILS) 83 % (16-70); TOXIC GRANULATION 1+ (NORMAL)
[2017-06-05 15:26] LABS: OVALOCYTES 1+ (NORMAL); SPHEROCYTES 1+ (NORMAL)
[2017-06-06] VITALS (18 sets, daily range): BP systolic 93–107; BP diastolic 57–69; PULSE 78–106; RESP 19–58; TEMP 97.3–98.7; O2SAT 94–100
[2017-06-06] MEDS: LINEZOLID 600 MG PREMIX 300 ML IV SCH ×2 (01:15→09:17)
[2017-06-06] MEDS: DEXAMETHASONE SOD PHOS 4 MG/ML VIAL IV PUSH SCH ×3 (01:17→21:41)
[2017-06-06] MEDS: guaiFENesin SOLUTION 200 MG/10 ML CUP PO SCH ×4 (01:18→21:42)
[2017-06-06] MEDS: FAMOTIDINE 20 MG/2 ML VIAL IV PUSH SCH ×3 (01:18→21:42)
[2017-06-06] MEDS: METOPROLOL TARTRATE 25 MG TAB PO SCH ×3 (01:30→21:42)
[2017-06-06] MEDS: RESP: SODIUM CHLORIDE 3% 4 ML NEB NEB SCH ×4 (04:00→22:00)
[2017-06-06] MEDS: levETIRAcetam INJ 750 MG in SODIUM CHLORIDE 0.9% INJ 100 ML IV SCH ×2 (05:06→19:22)
[2017-06-06 07:49] LABS: BASOPHIL % 0.1 % (0.0-2.0); EOSINOPHIL # 0.1 TH/MM3 (0-0.4); EOSINOPHIL % 0.7 % (0.0-4.0); HEMATOCRIT 37.8 % (39.0-51.0); HEMOGLOBIN 12.9 GM/DL (13.0-17.0); LYMPH % 7.8 % (9.0-44.0); MEAN CELL VOLUME 83.1 FL (80.0-100.0); MEAN CORPUSCULAR HEMOGLOBIN 28.4 PG (27.0-34.0); MEAN CORPUSCULAR HGB CONC 34.1 % (32.0-36.0); MEAN PLATELET VOLUME 7.6 FL (7.0-11.0); MONO % 3.5 % (0.0-8.0); MONOCYTE # 0.4 TH/MM3 (0-0.9); NEUT % 87.9 % (16.0-70.0); PLATELET COUNT 550 TH/MM3 (150-450); RED BLOOD COUNT 4.55 MIL/MM3 (4.50-5.90); RED CELL DISTRIBUTION WIDTH 13.2 % (11.6-17.2); WHITE BLOOD COUNT 12.5 TH/MM3 (4.0-11.0)
[2017-06-06 08:10] LABS: BICARBONATE 26.2 MEQ/L (21.0-32.0); CALCIUM 8.8 MG/DL (8.5-10.1); CREATININE 0.48 MG/DL (0.60-1.30)
[2017-06-06 08:31] LABS: BANDS 2 % (0-6); LYMPHOCYTES 6 % (9-44); MONOCYTES 4 % (0-8); MYELOCYTES 3 % (0-0); NEUTROPHIL # MANUAL DIFF 11.1 TH/MM3 (1.8-7.7); POLYS (SEG NEUTROPHILS) 84 % (16-70)
[2017-06-06] MEDS: ARTIFICIAL TEARS OPTH SOLN 15 ML BTL EACH EYE SCH ×3 (09:00→18:00)
[2017-06-06] MEDS: ENOXAPARIN SODIUM 40 MG/0.4 ML SYRINGE SQ SCH (09:17)
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
[2017-06-06] MEDS: LINEZOLID 600 MG TAB PO SCH (21:42)
[2017-06-07] VITALS (7 sets, daily range): BP systolic 93–105; BP diastolic 58–65; PULSE 85–102; RESP 16–19; TEMP 97.3–98.4; O2SAT 95–100
[2017-06-07] MEDS: RESP: SODIUM CHLORIDE 3% 4 ML NEB NEB SCH ×4 (04:00→22:00)
[2017-06-07] MEDS: levETIRAcetam INJ 750 MG in SODIUM CHLORIDE 0.9% INJ 100 ML IV SCH ×2 (06:04→17:20)
[2017-06-07] MEDS: guaiFENesin SOLUTION 200 MG/10 ML CUP PO SCH ×3 (06:10→21:51)
[2017-06-07] MEDS: METOPROLOL TARTRATE 25 MG TAB PO SCH ×2 (09:00→21:00)
[2017-06-07] MEDS: ARTIFICIAL TEARS OPTH SOLN 15 ML BTL EACH EYE SCH ×3 (09:00→17:20)
[2017-06-07] MEDS: LINEZOLID 600 MG TAB PO SCH ×2 (09:58→21:52)
[2017-06-07] MEDS: DEXAMETHASONE SOD PHOS 4 MG/ML VIAL IV PUSH SCH ×2 (09:59→21:52)
[2017-06-07] MEDS: FAMOTIDINE 20 MG/2 ML VIAL IV PUSH SCH ×2 (09:59→21:52)
[2017-06-07] MEDS: ENOXAPARIN SODIUM 40 MG/0.4 ML SYRINGE SQ SCH (10:00)
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
[2017-06-08] VITALS (8 sets, daily range): BP systolic 92–99; BP diastolic 54–78; PULSE 81–104; RESP 16–20; TEMP 97.6–98.1; O2SAT 97–99
[2017-06-08] MEDS: RESP: SODIUM CHLORIDE 3% 4 ML NEB NEB SCH ×4 (03:25→20:57)
[2017-06-08] MEDS: guaiFENesin SOLUTION 200 MG/10 ML CUP PO SCH ×3 (05:36→21:34)
[2017-06-08] MEDS: levETIRAcetam INJ 750 MG in SODIUM CHLORIDE 0.9% INJ 100 ML IV SCH ×2 (05:37→17:43)
[2017-06-08 07:26] LABS: AUTOMATED NEUTROPHIL # 7.4 TH/MM3 (1.8-7.7); BASOPHIL # 0.2 TH/MM3 (0-0.2); BASOPHIL % 1.6 % (0.0-2.0); EOSINOPHIL # 0.1 TH/MM3 (0-0.4); EOSINOPHIL % 0.7 % (0.0-4.0); HEMATOCRIT 35.9 % (39.0-51.0); HEMOGLOBIN 12.3 GM/DL (13.0-17.0); LYMPH % 15.2 % (9.0-44.0); LYMPHOCYTE # 1.5 TH/MM3 (1.0-4.8); MEAN CELL VOLUME 84.1 FL (80.0-100.0); MEAN CORPUSCULAR HEMOGLOBIN 28.8 PG (27.0-34.0); MEAN CORPUSCULAR HGB CONC 34.3 % (32.0-36.0); MEAN PLATELET VOLUME 7.3 FL (7.0-11.0); MONO % 6.9 % (0.0-8.0); MONOCYTE # 0.7 TH/MM3 (0-0.9); NEUT % 75.6 % (16.0-70.0); PLATELET COUNT 523 TH/MM3 (150-450); RED BLOOD COUNT 4.26 MIL/MM3 (4.50-5.90); RED CELL DISTRIBUTION WIDTH 13.5 % (11.6-17.2); WHITE BLOOD COUNT 9.8 TH/MM3 (4.0-11.0)
[2017-06-08 07:38] LABS: ALBUMIN 2.7 GM/DL (3.4-5.0); BICARBONATE 26.8 MEQ/L (21.0-32.0); CALCIUM 8.1 MG/DL (8.5-10.1); CREATININE 0.45 MG/DL (0.60-1.30); PHOSPHORUS 3.2 MG/DL (2.5-4.9)
[2017-06-08] MEDS: METOPROLOL TARTRATE 25 MG TAB PO SCH ×2 (09:00→21:00)
[2017-06-08] MEDS: ARTIFICIAL TEARS OPTH SOLN 15 ML BTL EACH EYE SCH ×3 (09:00→17:42)
[2017-06-08] MEDS: LINEZOLID 600 MG TAB PO SCH ×2 (09:39→21:34)
[2017-06-08] MEDS: DEXAMETHASONE SOD PHOS 4 MG/ML VIAL IV PUSH SCH ×2 (09:41→21:35)
[2017-06-08] MEDS: ENOXAPARIN SODIUM 40 MG/0.4 ML SYRINGE SQ SCH (09:42)
[2017-06-08] MEDS: FAMOTIDINE 20 MG/2 ML VIAL IV PUSH SCH ×2 (09:42→21:36)
[2017-06-08 10:02] LABS: BANDS 2 % (0-6); LYMPHOCYTES 17 % (9-44); MONOCYTES 5 % (0-8); MYELOCYTES 1 % (0-0); NEUTROPHIL # MANUAL DIFF 7.6 TH/MM3 (1.8-7.7); POLYS (SEG NEUTROPHILS) 75 % (16-70)
[2017-06-08] MEDS ORDERED: ZYVO600T PO (10:42)
[2017-06-08] MEDS ORDERED: LEVE500S PO (10:42)
--- NOTE | 2017-06-08 10:44 | HHI.FF ---
Face to Face Verification Diagnosis: (1) History of traumatic brain injury (2) Status epilepticus (3) Seizure disorder Physical Therapy Order: Evaluate and Treat Occupational Therapy Order: Evaluate and Treat Home Health Nursing Order: Nursing assessment with vital signs Home Health Aide Order: To Assist In: Bathing and personal care Clinical Education Assistant Order: To Provide: Long range planning I have seen patient Paul Johnson on 06/08/17. My clinical findings support the need for the requested home health care services because: Limited ability to care for self I certify that my clinical findings support that this patient is homebound because: Unsafe to leave home unassisted Resume home health Miles Méndez MD Jun 08, 2017 10:44
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
[2017-06-09] VITALS (7 sets, daily range): BP systolic 90–124; BP diastolic 52–58; PULSE 62–86; RESP 16–18; TEMP 97.5–98.1; O2SAT 96–98
[2017-06-09] MEDS: RESP: SODIUM CHLORIDE 3% 4 ML NEB NEB SCH ×4 (04:50→20:52)
[2017-06-09] MEDS: guaiFENesin SOLUTION 200 MG/10 ML CUP PO SCH ×3 (05:18→22:21)
[2017-06-09] MEDS: levETIRAcetam INJ 750 MG in SODIUM CHLORIDE 0.9% INJ 100 ML IV SCH ×2 (05:19→17:20)
[2017-06-09] MEDS: METOPROLOL TARTRATE 25 MG TAB PO SCH ×2 (09:00→21:00)
[2017-06-09] MEDS: FAMOTIDINE 20 MG/2 ML VIAL IV PUSH SCH ×2 (10:11→22:21)
[2017-06-09] MEDS: LINEZOLID 600 MG TAB PO SCH (10:11)
[2017-06-09] MEDS: ENOXAPARIN SODIUM 40 MG/0.4 ML SYRINGE SQ SCH (10:11)
[2017-06-09] MEDS: DEXAMETHASONE SOD PHOS 4 MG/ML VIAL IV PUSH SCH ×2 (10:11→22:21)
[2017-06-09] MEDS: ARTIFICIAL TEARS OPTH SOLN 15 ML BTL EACH EYE SCH ×3 (10:12→17:20)
--- NOTE | 2017-06-09 17:32 | HHI.PR ---
Subjective Remarks No acute changes per nursing. Patient continues nonverbal. Objective Vital Signs Date Time Temp Pulse Resp B/P (MAP) Pulse Ox O2 Delivery O2 Flow Rate FiO2 06/09/17 08:00 97.7 76 16 92/55 (67) 98 06/09/17 04:00 97.6 62 18 95/58 (70) 96 06/09/17 03:27 78 06/09/17 00:00 98.1 86 18 97/52 (67) 97 06/08/17 20:00 97.9 87 20 92/78 (83) 99 06/08/17 18:12 89 I/O 06/08/17 06/08/17 06/08/17 06/09/17 06/09/17 06/09/17 07:00 15:00 23:00 07:00 15:00 23:00 Intake Total 100 ml 960 ml 100 ml Output Total 900 ml 550 ml 425 ml Balance -800 ml 410 ml -325 ml Intake Oral 960 ml IV Total 100 ml 100 ml Output Urine Total 900 ml 550 ml 425 ml # Bowel Movements 0 1 1 Result Diagram: 06/08/17 0625 06/08/17 0625 Objective Remarks GENERAL: pt is sitting up in bed. Appears to obey limited commands. SKIN: Warm and dry. HEAD: Normocephalic. EYES: No scleral icterus. No injection or drainage. NECK: Supple, trachea midline. No JVD . CARDIOVASCULAR: Regular rate and rhythm without murmurs, gallops, or rubs. RESPIRATORY: Breath sounds equal bilaterally. No accessory muscle use. GASTROINTESTINAL: Abdomen soft, non-tender, nondistended. MUSCULOSKELETAL: No cyanosis, or edema. No sacral ulcers. BACK: Nontender without obvious deformity. No CVA tenderness. A/P Assessment and Plan == 06/09/17. Patient has completed linezolid. -Vital stable, with chronic tachycardia. -discharge to SNF. She has not received any antipsychotics while he is been here. Continue to Hold antipsychotics as it appears patient does not need. 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 On 500 mg twice a day at home Neuro: Dr. Reis CT brain 05/26: No acute disease MRI brain 05/27 reveals right frontal gliosis from prior ventriculostomy. No acute findings EEG: Generalized slowing that may be related to an encephalopathic process secondary to medications, metabolic or hypoxic injury. No seizures or epileptiform discharges. s/p LP 05/28- showed clear CSF, 0 WBC, CSF glc, 64 TP 29 within normal. Continue hold due to fluoxetine 20 mg daily and risperidone 1 mg at night/home medications Pulm: //Acute respiratory failure //Possible hospital-acquired pneumonia Oxygen PRN keep sat >92% Albuterol/ipratropium aerosols every 6 hours with albuterol aerosols every 2 hours as needed Guaifenesin 40 mg every 8 hours CV: //Sinus tachycardia Monitor HR and BP and maintain MAP> 65 mmHg. Decrease metoprolol 12.5 mg every 12 hours FEN/Renal/: Monitor urine output Accurate I's and O's Replace electrolytes as clinically indicated GI: //Hypoalbuminemia On Pureed honey thick diet Famotidine 20 mg IV twice a day for GI prophylaxis Docusate sodium/senna 1 tablet twice a day and polyethylene glycol 17 g twice daily for bowel regimen Metoclopramide 5 mill grams IV every 8 hours for bowel motility ID: //Staph aureus pneumonia Previously on aztreonam. Currently on linezolid till 06/09 Monitor for signs of infections ( Fever, WBC) Pertinent cultures 05/29, - sputum - staph aureus 05/29 - UA - no growth 05/29 - CSF - no growth 05/29 - sputum - staph aureus 05/29 - blood cultures 2 - no growth 05/26 - blood cultures 2 - no growth Followed by infectious disease/Dr. Alan Currently on famotidine 20 mg IV daily, diphenhydramine 25 mg scheduled every 6 hours and dexamethasone 4 mg every 12 hours for drug rash(taper steroids) Heme: //Normocytic anemia No indication for blood transfusion at this time. Monitor CBC daily Endo: SSI with Novulog with Accu-Cheks every 6 hours to maintain euglycemia. MSK //Right upper extremity amputation Physical therapy evaluate and treat GI prophylaxis with famotidine 20 mg q.12h. DVT prophylaxis with SCDs/enoxaparin 40 mg daily Discharge Planning Likely discharge home tomorrow with home health. Discharge Planning Discharge to SNF Miles Méndez MD Jun 09, 2017 17:31
[2017-06-10] VITALS: BP 92/53; PULSE 68; PULSE 69; RESP 18; TEMP 97.5; O2SAT 97
[2017-06-10] MEDS: RESP: SODIUM CHLORIDE 3% 4 ML NEB NEB SCH ×3 (03:52→15:05)
[2017-06-10 03:54] VITALS: O2SAT 97
[2017-06-10 04:00] VITALS: BP 96/68; PULSE 55; PULSE 77; RESP 19; TEMP 97.9; O2SAT 96
[2017-06-10] MEDS: guaiFENesin SOLUTION 200 MG/10 ML CUP PO SCH (06:20)
[2017-06-10] MEDS: levETIRAcetam INJ 750 MG in SODIUM CHLORIDE 0.9% INJ 100 ML IV SCH (06:21)
[2017-06-10 08:00] VITALS: BP 97/53; PULSE 63; PULSE 70; RESP 18; TEMP 97.1; O2SAT 97
[2017-06-10] MEDS: ENOXAPARIN SODIUM 40 MG/0.4 ML SYRINGE SQ SCH (09:11)
--- NOTE | 2017-06-10 09:33 | HHI.PR ---
Subjective Remarks seen with grandparents at bedside- per family- he eats regular diet consisitency being fed- swallowing well- on pureed awake and alert, "No" when asked if he wants burger or in pain Objective Vitals Vital Signs Date Time Temp Pulse Resp B/P (MAP) Pulse Ox O2 Delivery O2 Flow Rate FiO2 06/10/17 04:00 97.9 77 19 96/68 (77) 96 06/10/17 04:00 55 06/10/17 03:54 97 06/10/17 00:00 68 06/10/17 00:00 97.5 69 18 92/53 (66) 97 06/09/17 20:00 97.9 79 18 124/56 (78) 98 06/09/17 20:00 71 06/09/17 16:00 97.5 83 16 95/54 (68) 96 06/09/17 12:00 97.7 84 16 90/54 (66) 97 I/O 06/09/17 06/09/17 06/09/17 06/10/17 06/10/17 06/10/17 07:00 15:00 23:00 07:00 15:00 23:00 Intake Total 100 ml Output Total 425 ml 900 ml Balance -325 ml -900 ml IV Total 100 ml Output Urine Total 425 ml 900 ml # Bowel Movements 1 0 Result Diagram: 06/08/17 0625 06/08/17 0625 Imaging Last Impressions Chest X-Ray 06/02/17 0600 Signed Impressions: Service Date/Time: Friday, June 02, 2017 03:35 - CONCLUSION: Bibasilar medial base mild consolidation or atelectasis. Celestine Hernández MD Abdomen X-Ray 05/31/17 0000 Signed Impressions: Service Date/Time: Wednesday, May 31, 2017 11:37 - CONCLUSION: Prominent amount of stool in the colon. Nasogastric tube in place. Gerard Maza MD Lumbar Puncture Fluoroscopy 05/28/17 0000 Signed Impressions: Service Date/Time: May 16:36 - CONCLUSION: Uncomplicated fluoroscopically guided lumbar puncture with pressures as above. Cyrus Lopez MD Brain MRI 05/27/17 0000 Signed Impressions: Service Date/Time: Saturday, May 27, 2017 14:13 - CONCLUSION: 1. No acute hemorrhage, mass or infarction. 2. Mild gliosis in the right frontal lobe from prior ventriculostomy. Adam Baker MD Head CT 05/26/17 1222 Signed Impressions: Service Date/Time: Friday, May 26, 2017 14:56 - CONCLUSION: No acute disease. Mild cerebellar atrophy; unchanged. Tyler Santizo MD Objective Remarks awake and alert, swallowing well good sats anicteric no nuchal rigidity no rales regular rhythm abdomen soft, nontender extremities no edema Procedures Intubation, extubation. A/P Problem List: (1) Seizure disorder ICD Code: G40.909 - Seizure disorder Status: Acute (2) History of traumatic brain injury ICD Code: Z87.820 - Personal history of traumatic brain injury Status: Acute (3) MSSA (methicillin susceptible Staphylococcus aureus) pneumonia ICD Code: J15.211 - MSSA (methicillin susceptible Staphylococcus aureus) pneumonia Status: Resolved Assessment and Plan == 06/09/17. Patient has completed linezolid. -Vital stable, with chronic tachycardia. -discharge to SNF. has not received any antipsychotics while he is been here. Continue to Hold antipsychotics as it appears patient does not need. 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 - change to po liquid 750 bid Neuro: Dr. Reis CT brain 05/26: No acute disease MRI brain 05/27 reveals right frontal gliosis from prior ventriculostomy. No acute findings EEG: Generalized slowing that may be related to an encephalopathic process secondary to medications, metabolic or hypoxic injury. No seizures or epileptiform discharges. s/p LP 05/28- showed clear CSF, 0 WBC, CSF glc, 64 TP 29 within normal. Continue hold due to fluoxetine 20 mg daily and risperidone 1 mg at night/home medications DC IV steroids Pulm: //Acute respiratory failure //Possible hospital-acquired pneumonia Oxygen PRN keep sat >92% Albuterol/ipratropium aerosols every 6 hours with albuterol aerosols every 2 hours as needed DC Guaifenesin 40 mg every 8 hours CV: //Sinus tachycardia- in SR - rate normal Monitor HR and BP and maintain MAP> 65 mmHg. Decrease metoprolol 12.5 mg every 12 hours- - has not been getting BB since 06/06 - will DC from [facility] altogether FEN/Renal/: Monitor urine output Accurate I's and O's Replace electrolytes as clinically indicated GI: //Hypoalbuminemia On Pureed honey thick diet- REconsult speech therapy- pe family eats regular diet- see if we can advance- good po appetite Famotidine 20 mg IV twice a day for GI prophylaxis- change to po Docusate sodium/senna 1 tablet twice a day and polyethylene glycol 17 g twice daily for bowel regimen DC Reglan ID: //Staph aureus pneumonia S/P course of linezolid 06/09 Monitor for signs of infections ( Fever, WBC) Pertinent cultures 05/29, - sputum - staph aureus 05/29 - UA - no growth 05/29 - CSF - no growth 05/29 - sputum - staph aureus 05/29 - blood cultures 2 - no growth 05/26 - blood cultures 2 - no growth Followed by infectious disease/Dr. Alan Currently on famotidine 20 mg IV daily- change to po diphenhydramine 25 mg scheduled every 6 hours and dexamethasone 4 mg every 12 hours for drug rash(taper steroids)- DC Heme: //Normocytic anemia No indication for blood transfusion at this time. Monitor CBC daily Endo: SSI with Novulog with Accu-Cheks every 6 hours to maintain euglycemia. MSK //Right upper extremity amputation Physical therapy evaluate and treat GI prophylaxis with famotidine 20 mg q.12h. DVT prophylaxis with SCDs/enoxaparin 40 mg daily Discharge Planning Discharge Planning Discharge to SNF- facilities consulted- Chi Baron MD Jun 10, 2017 09:33
[2017-06-10 12:00] VITALS: BP 83/53; PULSE 78; PULSE 81; RESP 18; TEMP 97.9; O2SAT 99
[2017-06-10] MEDS: ARTIFICIAL TEARS OPTH SOLN 15 ML BTL EACH EYE SCH ×2 (13:59→14:00)
[2017-06-10] MEDS ORDERED: levETIRAcetam 500 MG/5 ML UDC PO SCH (21:00)
== END 2017-06-10 17:34 | DRG 207 ==
LOC: NEPC 12:01 → NEDA 13:38 → HIMN 15:10 → N05A 06-06 14:45
PROVIDERS: ADMIT Internal Medicine; ATTEND Internal Medicine
PROC: 5A1955Z Respiratory Ventilation, Greater than 96 Consecutive Hours (ICD-10-PCS; principal; 2017-05-26)
PROC: 0BH17EZ Insertion of Endotracheal Airway into Trachea, Via Natural or Artificial Opening (ICD-10-PCS; 2017-05-26)
PROC: 009U3ZX Drainage of Spinal Canal, Percutaneous Approach, Diagnostic (ICD-10-PCS; 2017-05-29)
DX: J69.0 Pneumonitis due to inhalation of food and vomit (principal); N17.9 Acute kidney failure, unspecified; E87.2 Acidosis; G81.94 Hemiplegia, unspecified affecting left nondominant side; J96.00 Acute respiratory failure, unspecified whether with hypoxia or hypercapnia; G40.901 Epilepsy, unspecified, not intractable, with status epilepticus; J15.211 Pneumonia due to Methicillin susceptible Staphylococcus aureus; R00.0 Tachycardia, unspecified; F32.9 Major depressive disorder, single episode, unspecified; E88.09 Other disorders of plasma-protein metabolism, not elsewhere classified; D64.9 Anemia, unspecified; L27.0 Generalized skin eruption due to drugs and medicaments taken internally; Z79.899 Other long term (current) drug therapy; Z89.211 Acquired absence of right upper limb below elbow; Z87.820 Personal history of traumatic brain injury
CPT/HCPCS: 31500; 36600; 43753; 51702; 62270; 70450; 70551; 71045; 74018; 76937; 77003; 80048; 80053; 80069; 80202; 80307; 81001; 82805; 82945; 82948; 83605; 83735; 84100; 84132; 84155; 84157; 85007; 85025; 85027; 85610; 85730; 86403; 87015; 87040; 87070; 87086; 87102; 87116; 87147; 87186; 87205; 87206; 89051; 94003; 94640; 94664; 94729; 95819; 96365; 96375; J0330; J1100; J1200; J1644; J1650; J1953; J2020; J2060; J2250; J2765; J3370; J3475; J7030; J7042; J7050